=== PATIENT | male | born 1980 | race Caucasian/White ===

== ENCOUNTER 2020-04-27 11:32 | Emergency (ER) | payer SELFPAY ==
--- NOTE | ~2020-04-27 | CT_ITS ---
EXAMINATION: CT facial bones w con DATE: 04/27/2020 12:37 INDICATION: Right cheek and lip swelling. TECHNIQUE: Computed tomography (CT) of the facial bones and maxillofacial region was performed with 7 5 mL Omnipaque 350 intravenous contrast. Automated exposure control and iterative reconstruction tech [employer] were employed. The dose-length product was 364.38 mGy-cm. COMPARISON: None. FINDINGS: There is an old blowout fracture of medial wall of right orbit. There is mild mucosal thick ening in the paranasal sinuses. There are carious lesions of teeth 4, 5, 11, 14, 20, 21, 22, 27, 28, 29, 30, 31, and 32. There are periapical lucencies around teeth 31 and 32. In the upper lip and cheek centered to the right of midline and extending to the right nasal cavity, there is soft tissue swell ing with a central hypoattenuated area measuring 2.3 x 1.0 x 1.4 cm, consistent with abscess. IMPRESSION: 1. Abscess centered in the right upper lip and cheek to the right of midline. 2. Extensive dental disease. Reviewed, dictated and finalized at location A. [employer]
[2020-04-27 11:40] VITALS: BP 151/96; PULSE 94; RESP 16; TEMP 36.7; O2SAT 99
[2020-04-27 12:01] LABS: Basophils Absolute Auto 0.03 K/mm3 (0.00-0.10); Basophils Percent Auto 0.2 % (0.0-1.0); Eosinophils Absolute Auto 0.04 K/mm3 (0.02-0.50); Eosinophils Percent Auto 0.3 % (1.0-6.0); Hematocrit 44.9 % (40.0-54.0); Hemoglobin 15.5 g/dL (14.0-18.0); Immature Granulocyte Absolute 0.08 K/mm3 (0.00-0.00); Immature Granulocyte Percent A 0.6 % (0.0-0.0); Lymphocytes Absolute Auto 2.09 K/mm3 (1.10-4.50); Lymphocytes Percent Auto 15.2 % (18.0-42.0); Mean Corpuscular HGB Conc 34.5 g/dL (32.0-36.0); Mean Corpuscular Hemoglobin 32.6 pg (27.0-31.0); Mean Corpuscular Volume 94.5 fL (78.0-102.0); Mean Platelet Volume 8.7 fl (8.7-11.0); Monocytes Absolute Auto 0.86 K/mm3 (0.10-0.90); Monocytes Percent Auto 6.2 % (2.0-11.0); Neutrophils Absolute Auto 10.7 K/mm3 (1.7-7.2); Neutrophils Percent Auto 77.5 % (50.0-70.0); Platelet Count Result 367 K/mm3 (150-420); Red Blood Count 4.75 M/mm3 (4.70-6.10); Red Cell Distribution Width 11.3 % (11.6-14.4); White Blood Count 13.8 K/mm3 (4.8-10.8)
--- NOTE | 2020-04-27 12:18 | ED.DENTAL ---
HPI - Dental/Oral General Chief complaint: Dental/Oral Stated complaint: face pain/swollen Time Seen by Provider: 04/27/20 11:50 Source: patient Mode of arrival: ambulatory Limitations: no limitations History of Present Illness HPI Narrative: 39-year-old man comes in today complaining of pain and swelling in his right upper lip and cheek that started approximately 1 week ago. Patient states that he had a pimple in his nose and after he discovered that his symptoms have only gotten worse. He states that he a had a temperature up to 100.4 F 2-3 days ago. He complains of nausea but he has had no vomiting, difficulty swallowing and difficulty breathing or toothache. He states he has headache. Severity: severe Relieving factors: nothing Exacerbating factors: other (palpation, movement) Associated symptoms: fever Treatment prior to arrival: other (azithromycin - first dose taken) Related Data Home Medications Medication Instructions Recorded Confirmed azithromycin 250 mg PO DIRECTED 04/27/20 04/27/20 Allergies Allergy/AdvReac Type Severity Reaction Status Date / Time No Known Allergies Allergy Unverified 06/20/18 17:52 Review of Systems Constitutional: Constitutional: Denies chills, Reports fever(s) and Denies weakness Eyes: Eyes: Denies change in vision and Denies photophobia ENT: Denies dysphagia, Denies nasal congestion and Denies sore throat Comments: Complains of pain at the right upper neck next to his jaw. Cardiovascular: Cardiovascular: Denies chest pain and Denies radiating jaw, neck or arm pain Respiratory: Respiratory: Denies cough and Denies dyspnea Gastrointestinal: Gastrointestinal: Denies abdominal pain, Reports nausea and Denies vomiting Neurologic: Denies vertigo, Denies dizziness and Denies syncope Hematologic/Lymphatic: Hematologic/Lymphatic: Denies easy bleeding and Denies easy bruising Allergic/Immunologic: Allergic/Immunologic: Reports lip swelling, Denies throat swelling and Denies tongue swelling PMFSH Past Medical History Medical History Ankle fracture Back fracture Surgical History Surgical History History of appendectomy Social History Social History Smoking status: Current every day smoker Tobacco type: cigars Alcohol intake: former Substance use: never Exam Const: Other: Moderate acute distress HENMT: Ears: external ears normal, TM's normal bilaterally and EAC's normal Mouth: Yes moist mucous membranes Throat: posterior oropharynx normal Other: Tenderness and swelling around the right nasal ala, which is raised compared to the left. No erythema or swelling of the ala itself. Mild tenderness palpation of the roof of the mouth. Eyes: Conjunctivae: conjunctivae normal Pupils: Equal, round and reactive pupils present EOM: EOMs intact bilaterally Neck: Neck: normal visual inspection Other: Mild right anterior cervical adenopathy which is minimally tender. Resp: Effort & Inspection: normal respiratory effort and not labored Auscultation: clear to auscultation bilaterally, no rales, no rhonchi and no wheezes Cardio: Rate: regular rate Rhythm: regular rhythm Heart sounds: no murmurs Skin: General skin exam: normal color, no jaundice and no pallor Rashes: no rashes Neuro: General: patient oriented x3, moves all extremities, no focal motor deficits and CN's II-XI intact bilaterally Speech: normal speech Gait exam (Neuro): Normal gait present Extrem: General: normal to inspection and no clubbing, cyanosis or edema Psych: Appearance: grossly normal and well kempt Mental Status: mental status grossly normal Affect: normal affect Attitude: cooperative Thought content: Yes Normal thought content present Course Vital Signs Vital signs: Vital Signs Temperature 36.7 C 04/27/
[2020-04-27 12:19] LABS: Alanine Aminotransferase 52 U/L (16-63); Albumin Level 3.4 g/dL (3.4-5.0); Alkaline Phosphatase 129 U/L (46-116); Anion Gap 10 mmol/L (8-16); Aspartate Amino Transferase 20 U/L (15-37); Bilirubin,Total 0.4 mg/dL (0.00-1.00); Blood Urea Nitrogen 5 mg/dL (7-18); Calcium 9.1 mg/dL (8.5-10.1); Carbon Dioxide 29 mmol/L (21-32); Chloride 101 mmol/L (98-108); Estimated Glomerular Filt Rate > 60; Glucose 148 mg/dL (70-99); Osmolality Calculated 290 mOsm/kg (285-295); Potassium 3.9 mmol/L (3.5-5.1); Sodium 140 mmol/L (136-145)
[2020-04-27] MEDS: CLINDAMYCIN HCL 150 MG CAP 300 MG PO (13:11)
[2020-04-27] MEDS: HYDROcodone/acetaminophen (*CRX) 5-325 MG TABLET 1 TAB PO (13:11)
--- NOTE | 2020-04-27 14:13 | PC.NURSE ---
I&D PERFORMED PER ERP - NO RELIEF OF PUS OR PRESSURE - PT IS GIVEN INSTRUCTIONS ON USE OF SALT WATER GARGLES FOR MOUTH AND FOLLOW UP WITH ENT DR BOJORQUEZ
[2020-04-27 14:23] VITALS: RESP 15
== END 2020-04-27 14:25 | disposition home or self-care (01) ==
PROVIDERS: Emergency Provider Emergency Medicine; PCP Family Medicine
DX: L02.01 Cutaneous abscess of face (principal)
CPT/HCPCS: 36415; 41800; 70487; 80053; 85025; 87070; 87077; 87186; 87205; 99283; 99284; A9270; Q9967

== ENCOUNTER 2020-12-27 16:39 | Outpatient (CLI) | payer BC, SELFPAY ==
[2020-12-27 17:26] LABS: SARS-CoV-2 Ag Positive (Negative)
== END 2020-12-27 16:40 | disposition home or self-care (01) ==
LOC: CHSLAB 16:44
PROVIDERS: PCP Family Medicine; Visit Provider Physician Assistant
DX: U07.1 COVID-19 (principal)
CPT/HCPCS: 87426; C9803

== ENCOUNTER 2021-11-16 04:15 | Emergency (ER) | payer BC, SELFPAY ==
[2021-11-16] VITALS (15 sets, daily range): BP systolic 116–148; BP diastolic 80–94; PULSE 74–96; RESP 15–24; TEMP 36.4–37.1; O2SAT 98–100
--- NOTE | ~2021-11-16 | CT_ITS ---
EXAMINATION: CT abdomen pelvis w con DATE: 11/16/2021 06:11 INDICATION: Right abdominal pain. TECHNIQUE: Computed tomography (CT) of the abdomen and pelvis was performed with 100 mL Omnipaque 350 intravenous contrast. Automated exposure control and iterative reconstruction technique were employe d. The dose-length product was 445.41 mGy-cm. COMPARISON: CT abdomen and pelvis 06/20/2018 FINDINGS: The visualized portions of the lung bases demonstrate minimal atelectasis on the right. No pleural effusion. The heart size is normal. No pericardial effusion. The liver, gallbladder, spleen, pancreas, adrenal glands, and right kidney are normal. There are cysts in left kidney measuring up to 9 mm. The prostate is mildly enlarged. There are no dilated loops of bowel. There are changes of stephanie endectomy. There are no pathologically enlarged lymph nodes. There is no free intraperitoneal fluid. There is a left inguinal hernia containing fat. There is moderate thoracic spondylosis. There is aleena re lower lumbar spondylosis. IMPRESSION: 1. Small left inguinal hernia containing fat. Reviewed, dictated and finalized at location A.
--- NOTE | 2021-11-16 04:34 | ED.ABDPAIN ---
HPI - Abdominal Pain General Chief Complaint: Abdominal Pain <Colby Hinojosa MD - Last Filed: 11/30/21 14:03> Stated Complaint: ABD PAIN <Colby Hinojosa MD - Last Filed: 11/30/21 14:03> Time Seen by Provider: 11/16/21 04:35 <Colby Hinojosa MD - Last Filed: 11/30/21 14:03> Source: patient <Colby Hinojosa MD - Last Filed: 11/30/21 14:03> Mode of arrival: ambulatory <Colby Hinojosa MD - Last Filed: 11/30/21 14:03> History of Present Illness HPI narrative: 41-year-old male with a history of status post appendectomy, presents to the ER with a 1 day history of -- right upper quadrant abdominal pain which started at 2:00 p.m. yesterday. The pain has gotten progressively worse. No aggravating or relieving factors. Pain is intermittent. Pain is currently rated as 5/10. -- nausea with 2 episodes of vomiting this morning. No fever or chills. No dysuria/ hematuria or flank pain. He had a similar pain 1 year ago and subsequently has had intermittent flare-ups of pain with spontaneous resolution. He has never seen physician for his right quadrant abdominal pain. <Colby Hinojosa MD - Last Filed: 11/30/21 14:03> MD elicited complaint: abdominal pain <Colby Hinojosa MD - Last Filed: 11/30/21 14:03> Pertinent past history: none ( Prior history of right upper quadrant abdominal pain.) <Colby Hinojosa MD - Last Filed: 11/30/21 14:03> Onset (ago): hour(s) ( Started 14 hours ago) <Colby Hinojosa MD - Last Filed: 11/30/21 14:03> Pain Consistency: intermittent <Colby Hinojosa MD - Last Filed: 11/30/21 14:03> Location: RUQ <Colby Hinojosa MD - Last Filed: 11/30/21 14:03> Severity: moderate <Colby Hinojosa MD - Last Filed: 11/30/21 14:03> Pain scale (0-10): 5 <Colby Hinojosa MD - Last Filed: 11/30/21 14:03> Quality: aching <Colby Hinojosa MD - Last Filed: 11/30/21 14:03> Radiation: none <Colby Hinojosa MD - Last Filed: 11/30/21 14:03> Migration to: no migration <Colby Hinojosa MD - Last Filed: 11/30/21 14:03> Exacerbating factors: nothing <Colby Hinjoosa MD - Last Filed: 11/30/21 14:03> Relieving factors: nothing <Colby Hinojosa MD - Last Filed: 11/30/21 14:03> Associated symptoms: denies other symptoms <Colby Hinojosa MD - Last Filed: 11/30/21 14:03> Related Data Home Medications: Home Medications Medication Instructions Recorded Confirmed No Home Medications 11/16/21 11/16/21 <Colby Hinojosa MD - Last Filed: 11/30/21 14:03> Allergies/Adverse Reactions: Allergies Allergy/AdvReac Type Severity Reaction Status Date / Time No Known Allergies Allergy Verified 11/16/21 04:20 <Colby Hinojosa MD - Last Filed: 11/30/21 14:03> Review of Systems Review of Systems: All systems reviewed & are unremarkable except as noted in HPI and below <Colby Hinojosa MD - Last Filed: 11/30/21 14:03> Constitutional: Constitutional: Reports as per HPI and Reports no additional constitutional complaints <Colby Hinojosa MD - Last Filed: 11/30/21 14:03> Eyes: Eyes: Reports as per HPI and Reports no additional eye complaints <Colby Hinojosa MD - Last Filed: 11/30/21 14:03> ENT: Reports system reviewed and no additional complaints, except as documented and Reports as per HPI <Colby Hinojosa MD - Last Filed: 11/30/21 14:03> Cardiovascular: Cardiovascular: Reports as per HPI and Reports no additional cardiovascular complaints <Colby Hinojosa MD - Last Filed: 11/30/21 14:03> Respiratory: Respiratory: Reports as per HPI and Reports no additional respiratory complaints <Colby Hinojosa MD - Last Filed: 11/30/21 14:03> Gastrointestinal: Gastrointestinal: Reports as per HPI, Reports no additional gastrointestinal complaints, Reports abdominal pain, Reports nausea and Reports vomiting <Colby Hinojosa MD - Last
[2021-11-16 05:02] LABS: Basophils Absolute Auto 0.05 K/mm3 (0.00-0.10); Basophils Percent Auto 0.5 % (0.0-1.0); Eosinophils Absolute Auto 0.04 K/mm3 (0.02-0.50); Eosinophils Percent Auto 0.4 % (1.0-6.0); Hematocrit 43.6 % (40.0-54.0); Hemoglobin 15.1 g/dL (14.0-18.0); Immature Granulocyte Absolute 0.05 K/mm3 (0.00-0.00); Immature Granulocyte Percent A 0.5 % (0.0-0.0); Lymphocytes Absolute Auto 1.42 K/mm3 (1.10-4.50); Lymphocytes Percent Auto 12.9 % (18.0-42.0); Mean Corpuscular HGB Conc 34.6 g/dL (32.0-36.0); Mean Corpuscular Hemoglobin 33.3 pg (27.0-31.0); Mean Corpuscular Volume 96.2 fL (78.0-102.0); Monocytes Absolute Auto 0.91 K/mm3 (0.10-0.90); Monocytes Percent Auto 8.2 % (2.0-11.0); Neutrophils Absolute Auto 8.6 K/mm3 (1.7-7.2); Neutrophils Percent Auto 77.5 % (50.0-70.0); Platelet Count Result 293 K/mm3 (150-420); Red Blood Count 4.53 M/mm3 (4.70-6.10); Red Cell Distribution Width 12.2 % (11.6-14.4); White Blood Count 11.1 K/mm3 (4.8-10.8)
[2021-11-16 05:23] LABS: Lactic Acid Reflex 0.6 mmol/L (0.4-2.0)
[2021-11-16 05:28] LABS: Alanine Aminotransferase 488 U/L (16-63); Alkaline Phosphatase 220 U/L (46-116); Anion Gap 9 mmol/L (8-16); Aspartate Amino Transferase 270 U/L (15-37); Bilirubin,Total 4.8 mg/dL (0.00-1.00); Blood Urea Nitrogen 14 mg/dL (7-18); Calcium 9.1 mg/dL (8.5-10.1); Carbon Dioxide 23 mmol/L (21-32); Chloride 103 mmol/L (98-108); Estimated CRCL calculation 81 ml/min; Estimated Glomerular Filt Rate > 60; Glucose 138 mg/dL (70-99); Osmolality Calculated 282 mOsm/kg (285-295); Potassium 3.7 mmol/L (3.5-5.1); Sodium 135 mmol/L (136-145); Total Protein 7.3 g/dL (6.4-8.2)
[2021-11-16 05:32] LABS: Lipase > 1500 U/L (73-393)
[2021-11-16] MEDS: LACTATED RINGERS 1,000 ML 999 ML IV CONT (06:13)
[2021-11-16] MEDS: PANTOPRAZOLE SODIUM IV 40 MG VIAL IV PUSH (06:40)
[2021-11-16] MEDS: LACTATED RINGERS 1,000 ML 150 ML IV CONT (07:17)
[2021-11-16 08:05] LABS: Appearance Urine Clear (Clear); Bilirubin Urine 1+ (Negative); Blood Urine Negative (Negative); Glucose Urine UA Negative (Negative); Ketones Urine Trace (Negative); Leukocyte Esterase Ur Negative (Negative); Nitrate Urine Negative (Negative); Protein Urine Negative (Negative); pH Urine 7.5 (5.0-8.0)
[2021-11-16 08:18] LABS: Add Urine Microscopic? YES; Amorphous Sediment Urine Moderate; Bacteria Urine Trace /hpf; Color Urine Dark Orange (Yellow); RBC Urine None seen /hpf (0-2); WBC Urine None seen /hpf (0-3)
--- NOTE | 2021-11-16 08:40 | PC.NURSE ---
0715 resumed care of pt. no complaints voiced. awaiting ct results 0740 call to [facility] awaiting call back [id number] call to [facility], awaiting bed placement
== END 2021-11-16 09:35 | disposition short-term general hospital (02) ==
PROVIDERS: Internal Medicine Critical Care Medicine; Emergency Provider Emergency Medicine; PCP Family Medicine
DX: K85.90 Acute pancreatitis without necrosis or infection, unspecified (principal); F17.200 Nicotine dependence, unspecified, uncomplicated
CPT/HCPCS: 36415; 74177; 80053; 81001; 83605; 83690; 84484; 85025; 96361; 96374; 99285; C9113; J7120; Q9967

== ENCOUNTER 2022-11-10 10:40 | Emergency (ER) | payer BC, SELFPAY ==
--- NOTE | 2022-11-10 10:46 | ED.ABDPAIN ---
HPI - Abdominal Pain General Chief Complaint: Abdominal Pain Stated Complaint: right upper quadrant pain Time Seen by Provider: 11/10/22 10:45 History of Present Illness HPI narrative: Patient is a 42-year-old male with prior history of pancreatitis, status post cholecystectomy here with right upper quadrant and epigastric abdominal pain. He states he has had intermittent abdominal pains Which are sharp, severe for the last 1 week. He notes that it has been intermittent in nature and seems to have been relieved with Ochelata which he had been taking for dental pain. He notes that he ran out of Ochelata over the weekend and he has been in significant pain since. He has been unable to tolerate anything p.o. other than a couple of crackers this morning. He has had numerous episodes of emesis typically containing stomach acid or whatever he just ate. No blood. he does note some associated diarrhea. He notes some blood on the toilet paper after wiping. He states the pain feels Similar to when he had cholecystitis in the past. He notes that his girlfriend believed his eyes were getting more yellow over the last 1 week. His last alcoholic drink was about 1 year ago. Of note he is currently on Augmentin for dental infection which he began prior to symptom onset. No urinary symptoms, no flank pain, no hematuria. No fever or chills, has been diaphoretic. Related Data Allergies Allergy/AdvReac Type Severity Reaction Status Date / Time No Known Allergies Allergy Verified 11/10/22 10:51 Review of Systems Review of Systems: All systems reviewed & are unremarkable except as noted in HPI and below PMFSH Past Medical History Medical History Ankle fracture Back fracture Surgical History Surgical History History of appendectomy Social History Social History Smoking status: Current every day smoker Tobacco type: cigars Alcohol intake: former Substance use: never Living arrangements: with family Exam Narrative: GENERAL: Well-appearing, well-nourished, appears to be in pain, diaphoretic, dry heaving HEAD: Normocephalic, atraumatic. EYES: PERRLA and EOMI. ENT: Nares clear. Mucous membranes moist. NECK: Supple. CHEST: Clear to auscultation. No respiratory distress. HEART: Tachycardic. Normal peripheral pulses. ABDOMEN: Soft, diffusely tender with distractible voluntary guarding, no rebound. EXTREMITIES: Normal range of motion. No edema. SKIN: Warm, dry, no rash. NEURO: No focal deficits. Alert and oriented x3. PSYCH: Normal mood and affect. Course Course Emergency Course: Chart review performed. Patient has history of pancreatitis. s/p cholecystectomy and appendectomy. Patient seen evaluated, does appear to be uncomfortable, writhing in pain and dry heaving. Vitals reviewed and appear stable. Based on the patient's history and physical exam, my differential includes but is not limited to gastritis, gastroenteritis, pancreatitis, less likely bowel obstruction given active diarrhea. Initial workup includes: lab work, pain medication, IVF, reevaluation. Lab work and imaging reviewed: No leukocytosis, hgb stable. Electrolytes within normal limits. Renal function at baseline. Bilirubin normal. AST/ALT/Alk phos mildly elevated however improved from 2021. Troponin negative. Lipase normal. ETOH negative. Patient reevaluated, feeling much better. Repeat abdominal exam is soft with no guarding. Minimally tender in the epigastric region. Discussed protonix, carafate, zofran for home. Will do PO challenge. On reevaluation, the patient states that they are feeling much better. Tolerating PO. Repeat examination did not show any significant guarding or rebound. Discussed workup with patient. The patient was given strict return precautions, if they ar
--- NOTE | 2022-11-10 10:47 | ECG_ITS ---
Measurements Intervals [facility] Rate: 75 P: 59 OR: 136 QRS: 77 QRSD: 105 T: 64 QT: 394 QTc: 443 Interpretive Statements SINUS RHYTHM NORMAL ECG COMPARED TO ECG 02/20/2019 23:48:55 NO SIGNIFICANT CHANGES Electronically Signed On 11-12-2022 12:13:25 CDT by Vinicius Fritz M.D.
[2022-11-10 10:50] VITALS: BP 129/88; PULSE 84; RESP 24; TEMP 36.2; O2SAT 100
[2022-11-10 10:52] VITALS: BP 129/88; PULSE 84; RESP 17; TEMP 36.2; O2SAT 100
[2022-11-10] MEDS: PANTOPRAZOLE SODIUM IV 40 MG VIAL IV PUSH (11:12)
[2022-11-10] MEDS: SODIUM CHLORIDE 0.9% IV 1,000 ML 999 ML IV CONT (11:12)
[2022-11-10 11:13] LABS: Basophils Absolute Auto 0.04 K/mm3 (0.00-0.10); Basophils Percent Auto 0.4 % (0.0-1.0); Eosinophils Absolute Auto 0.09 K/mm3 (0.02-0.50); Eosinophils Percent Auto 0.9 % (1.0-6.0); Hematocrit 43.4 % (40.0-54.0); Hemoglobin 14.8 g/dL (14.0-18.0); Immature Granulocyte Absolute 0.05 K/mm3 (0.00-0.00); Immature Granulocyte Percent A 0.5 % (0.0-0.0); Lymphocytes Absolute Auto 2.58 K/mm3 (1.10-4.50); Lymphocytes Percent Auto 25.9 % (18.0-42.0); Mean Corpuscular HGB Conc 34.1 g/dL (32.0-36.0); Mean Corpuscular Hemoglobin 32.8 pg (27.0-31.0); Mean Corpuscular Volume 96.2 fL (78.0-102.0); Mean Platelet Volume 8.8 fl (8.7-11.0); Neutrophils Absolute Auto 6.6 K/mm3 (1.7-7.2); Neutrophils Percent Auto 66.3 % (50.0-70.0); Platelet Count Result 364 K/mm3 (150-420); Red Blood Count 4.51 M/mm3 (4.70-6.10); Red Cell Distribution Width 12.1 % (11.6-14.4)
[2022-11-10] MEDS: ONDANSETRON INJ 4 MG/2 ML VIAL IV PUSH (11:14)
[2022-11-10] MEDS: MORPHINE SULFATE (*CRX) 4 MG/ML INJ IV PUSH (11:16)
[2022-11-10 11:32] LABS: Alanine Aminotransferase 92 U/L (16-63); Albumin Level 3.6 g/dL (3.4-5.0); Alkaline Phosphatase 158 U/L (46-116); Anion Gap 10 mmol/L (8-16); Aspartate Amino Transferase 107 U/L (15-37); Bilirubin,Total 0.5 mg/dL (0.00-1.00); Blood Urea Nitrogen 11 mg/dL (7-18); Calcium 8.8 mg/dL (8.5-10.1); Carbon Dioxide 28 mmol/L (21-32); Chloride 102 mmol/L (98-108); Estimated CRCL calculation 73 ml/min; Estimated Glomerular Filt Rate > 60; Glucose 111 mg/dL (70-99); Lipase 47 U/L (16-77); Osmolality Calculated 290 mOsm/kg (285-295); Sodium 140 mmol/L (136-145); Total Protein 7.7 g/dL (6.4-8.2)
[2022-11-10 11:34] LABS: Bilirubin Direct 0.2 mg/dL (0-0.2)
[2022-11-10 11:35] LABS: Bilirubin Indirect 0.3 mg/dL (0-1.0)
[2022-11-10 11:36] LABS: Ethanol < 3 mg/dL (0-6); Troponin I < 4.0 ng/L (0.00-60.4)
[2022-11-10 12:53] VITALS: BP 134/94; PULSE 71; RESP 17; TEMP 36.7; O2SAT 100
== END 2022-11-10 12:53 | disposition home or self-care (01) ==
PROVIDERS: Emergency Provider Student in an Organized Health Care Education/Training Program; PCP Family Medicine
DX: R74.01 Elevation of levels of liver transaminase levels (principal); R11.2 Nausea with vomiting, unspecified; F17.290 Nicotine dependence, other tobacco product, uncomplicated; Z90.49 Acquired absence of other specified parts of digestive tract
CPT/HCPCS: 36415; 80053; 80307; 82248; 83690; 84484; 85025; 93005; 96361; 96374; 96375; 99284; C9113; J2270; J2405; J7030

== ENCOUNTER 2022-11-10 15:28 | Emergency (ER) | payer BC, SELFPAY ==
--- NOTE | ~2022-11-10 | CT_ITS ---
EXAMINATION: CT abdomen pelvis wo con DATE: 11/10/2022 16:26 INDICATION: Right upper quadrant pain TECHNIQUE: Computed tomography (CT) of the abdomen and pelvis was performed without intravenous contr ast. The dose-length product (DLP) was 312.91 mGy-cm. Automated exposure control and iterative recons truction technique were employed. COMPARISON: 11/16/2021 FINDINGS: Minimal dependent atelectasis is present in the lung bases. The heart size is normal. The l iver, spleen, pancreas, gallbladder and adrenal glands are normal. There is mild enlargement of the c ommon bile duct of unclear etiology. In addition, there is questionable peritoneal inflammation or th ickening near the hepatic flexure near the colon best appreciated on coronal reconstructed image 28 o f 140. The kidneys are unremarkable. No pathologically enlarged abdominal or pelvic lymph nodes are i dentified. No free intraperitoneal gas or evidence of bowel obstruction. Changes of appendectomy are noted. There is mild lumbar spondylosis. IMPRESSION: 1. Mild enlargement of the common bile duct of unclear etiology. Follow-up with contrast-enhanced CT is recommended. 2. Questionable peritoneal inflammation or thickening near the hepatic flexure of the colon which cou ld also be simultaneously evaluated with contrast-enhanced CT. Reviewed, dictated and finalized at location B. IMPRESSION: 1. Mild enlargement of the common bile duct of unclear etiology. Follow-up with contrast-enhanced CT is recommended. 2. Questionable peritoneal inflammation or thickening near the hepatic flexure of the colon which could also be simultaneously evaluated with contrast-enhance d CT.
--- NOTE | ~2022-11-10 | CT_ITS ---
EXAMINATION: CT abdomen pelvis w con DATE: 11/10/2022 17:27 INDICATION: dilated cbd, colonic inflammation, RUQ abdominal pain TECHNIQUE: Computed tomography (CT) of the abdomen and pelvis was performed with 100 mL Omnipaque-350 intravenous contrast. Automated exposure control and iterative reconstruction technique were employe d. The dose-length product was 407.03 mGy-cm. COMPARISON: None. FINDINGS: Lower thorax: Unremarkable Liver: Normal. Biliary/Gallbladder: No dilation. Surrounding inflammatory change and mucosal hyperemia, particularly at the gallbladder neck. Intrahepatic hepatic bile duct dilation, no stone or mass detected. Pancreas: No mass or duct dilation. Spleen: Normal. Adrenals:No mass. Kidneys: Simple left renal cysts No mass, stone, or hydronephrosis. GI tract: Mild distal esophageal and gastric wall edema. Mild pericolonic inflammatory change of the hepatic flexure without wall thickening. No small or large bowel dilation. Surgically absent appendix . Mesentery/Peritoneum: No ascites, mass, or free air. Retroperitoneum: No mass. Pelvis: Pelvic organs are within normal limits. Soft Tissues: Soft tissues and body wall unremarkable. Bones: No acute osseous finding. IMPRESSION: Mild esophagitis/gastritis. Intra and extrahepatic bile duct dilation with accompanying hyperemia and inflammatory change. No obs tructing stone or mass detected. Right upper quadrant ultrasound, HIDA scanning, or MRCP may be helpf ul for further evaluation. Mild pericolonic inflammation at the hepatic flexure is presumed to be reactive to the bile duct proc ess. Reviewed, dictated and finalized at location K. IMPRESSION: Mild esophagitis/gastritis. Intra and extrahepatic bile duct dilation with accompanying hyperemia and infla mmatory change. No obstructing stone or mass detected. Right upper quadrant ult rasound, HIDA scanning, or MRCP may be helpful for further evaluation. Mild pericolonic inflammation at the hepatic flexure is presumed to be reactive to the bile duct process.
--- NOTE | 2022-11-10 15:32 | ED.ABDPAIN ---
HPI - Abdominal Pain General Chief Complaint: Abdominal Pain Stated Complaint: stomach pain Time Seen by Provider: 11/10/22 15:31 History of Present Illness HPI narrative: Patient is a 42-year-old male with history of pancreatitis, CBD stone status post cholecystectomy here with abdominal pain. Patient was seen by me earlier today for abdominal pain. He had a negative workup here in the department and was feeling great after a dose of morphine. He left after tolerating p.o. and went to his primary care doctor's office for a preexisting appointment due to a skin tag on his leg. There he was in significant abdominal pain and they recommended he return to the emergency department. I did speak with patient's primary care doctor who notes that patient appeared to be in pain and he was unsure further workup was required in the emergency department. Given lack of resources in the outpatient study and the significant pain patient appeared to be and he referred him back to the emergency department. Patient notes that he attempted to fill his prescriptions but they were not ready at the pharmacy. He denies any additional vomiting. Denies any change in the pain. Notes pain continues to be located in the epigastrium and is non radiating. He has not had any additional bowel movements. No fever or chills. Related Data Allergies Allergy/AdvReac Type Severity Reaction Status Date / Time No Known Allergies Allergy Verified 11/10/22 15:31 Review of Systems Review of Systems: CONSTITUTIONAL: Denies fever, chills, or sweats. CARDIOVASCULAR: Denies chest pain RESPIRATORY: Denies cough or dyspnea. GASTROINTESTINAL: abdominal pain, nausea, vomiting, and diarrhea. GENITOURINARY: Denies dysuria or hematuria. SKIN: Denies rash or itching. MUSCULOSKELETAL: Denies back pain, joint pain, or myalgia. [facility] Past Medical History Medical History (Updated 11/10/22 @ 18:42 by Joi Chadwick MD) Abdominal pain, acute, right upper quadrant Ankle fracture Back fracture Surgical History Surgical History History of appendectomy Social History Social History Smoking status: Current every day smoker Tobacco type: cigars Alcohol intake: former Substance use: never Living arrangements: with family Exam Narrative: GENERAL: Well-appearing, well-nourished, not diaphoretic, moaning in pain when I enter the room HEAD: Normocephalic, atraumatic. EYES: PERRLA and EOMI. ENT: Nares clear. Mucous membranes moist. NECK: Supple. CHEST: Clear to auscultation. No respiratory distress. HEART: Regular rate and rhythm. Normal peripheral pulses. ABDOMEN: Soft, tender in the epigastrium, no rebound or guarding EXTREMITIES: Normal range of motion. No edema. SKIN: Warm, dry, no rash. NEURO: No focal deficits. Alert and oriented x3. PSYCH: Normal mood and affect. Course Course Emergency Course: Patient seen evaluated. It does appear to be in pain at this time, not diaphoretic like last presentation. Chart review not necessary given I saw the same patient couple of hours ago for the same. I did discuss case with patient's primary care doctor. He has been unable to refill his prescriptions. Given lab work within the last few hours, will not repeat at this time. UA ordered. Pain medication ordered with toradol, carafate and zofran. Will do CT abdomen pelvis. I believe CBD stone highly unlikely given he is S/P cholecystectomy 6 months ago. Continue to suspect gastritis, gastroenteritis, peptic ulcer disease, possibly bowel obstruction given prior abdominal surgeries. CT shows non specific CBD dilation and some peritoneal inflammation, radiologist recommends CT with contrast. Will order this. CT abdomen pelvis with contrast shows Intra and extrahepatic bile duct dilation with accompanying hyperemia and inflammatory changes, no stone or mas
[2022-11-10 15:40] VITALS: BP 164/117; PULSE 62; RESP 24; TEMP 36.7; O2SAT 100
[2022-11-10] MEDS: ONDANSETRON HCL ODT 4 MG TABLET PO (16:02)
[2022-11-10] MEDS: KETOROLAC 30 MG/ML VIAL (*BKC) 15 MG IM (16:03)
[2022-11-10] MEDS: SUCRALFATE SUSP 100 MG/ML 10 ML UDC 1000 MG PO (16:24)
[2022-11-10 19:40] VITALS: BP 135/96; PULSE 84; RESP 18; O2SAT 100
--- NOTE | 2022-11-10 19:40 | PC.NURSE ---
PT IS REQUESTING PAIN MEDICATION PRIOR TO DC DUE TO THE PHARMACY BEING CLOSED TONIGHT. PT REPORTS 5/10 ON PAIN SCALE AT THIS TIME TO RUQ. THAT KNOT IS THERE.
[2022-11-10] MEDS: HYDROcodone/acetaminophen (*CRX) 5-325 MG TABLET 1 TAB PO (19:48)
== END 2022-11-10 19:54 | disposition home or self-care (01) ==
PROVIDERS: Emergency Provider Student in an Organized Health Care Education/Training Program; PCP Family Medicine
DX: R10.11 Right upper quadrant pain (principal); F17.290 Nicotine dependence, other tobacco product, uncomplicated
CPT/HCPCS: 36415; 74176; 74177; 74178; 80053; 80307; 82248; 83690; 84484; 85025; 93005; 96361; 96372; 96374; 96375; 99284; A9270; C9113; J1885; J2270; J2405; J7030; Q9967

== ENCOUNTER 2022-11-11 09:48 | Emergency (ER) | payer BC, SELFPAY ==
--- NOTE | ~2022-11-11 | US_ITS ---
EXAMINATION: US right upper quadrant DATE: 11/11/2022 10:35 INDICATION: Right upper quadrant abdominal pain. TECHNIQUE: Multiple grayscale and Doppler ultrasound images of the abdomen were obtained. COMPARISON: CT abdomen and pelvis 11/10/2022 FINDINGS: The pancreas is obscured by bowel gas. The liver is normal without focal lesion. The gallbl adder is small and contains sludge. Gallbladder wall thickening is noted. There is a positive sonogra phic Cid sign. The common duct is dilated to 13 mm. There is normal flow in main portal vein. IMPRESSION: 1. Small gallbladder with sludge, gallbladder wall thickening, and positive sonographic Cid sign. These findings are indeterminate for acute cholecystitis. Consider hepatobiliary scintigraphy. 2. Dilated common duct. Reviewed, dictated and finalized at location A. IMPRESSION: 1. Small gallbladder with sludge, gallbladder wall thickening, and positive son ographic Cid sign. These findings are indeterminate for acute cholecystitis. Consider hepatobiliary scintigraphy. 2. Dilated common duct.
[2022-11-11 09:48] VITALS: BP 144/98; PULSE 75; PULSE 77; RESP 16; RESP 18; TEMP 36.4; O2SAT 100
--- NOTE | 2022-11-11 10:03 | ED.ABDPAIN ---
HPI - Abdominal Pain General Chief Complaint: Abdominal Pain Stated Complaint: abdominal pain Time Seen by Provider: 11/11/22 10:02 Source: patient and RN notes reviewed Mode of arrival: ambulatory Limitations: no limitations History of Present Illness HPI narrative: Patient was seen here twice in the last 24 hours for abdominal pain. It is recommended he have an outpatient ultrasound this morning which was at a.m.. He slept through it and now not able to get the ultrasound as scheduled. So he is coming through the ER again to get his ultrasound completed. MD elicited complaint: abdominal pain Pertinent past history: other ( Pancreatitis) Onset (ago): day(s) (2) Pain Consistency: intermittent Location: epigastric Severity: moderate Quality: cramping, stabbing and sharp Radiation: none Migration to: no migration Exacerbating factors: nothing Relieving factors: nothing Associated symptoms: nausea and vomiting Related Data Allergies Allergy/AdvReac Type Severity Reaction Status Date / Time No Known Allergies Allergy Verified 11/11/22 10:02 Review of Systems Review of Systems: All systems reviewed & are unremarkable except as noted in HPI and below Constitutional: Constitutional: Denies chills and Denies fever(s) PMFSH Past Medical History Medical History (Updated 11/11/22 @ 12:08 by Ahmet Rivas MD) Abdominal pain, acute, right upper quadrant Ankle fracture Back fracture Pancreatitis Surgical History Surgical History (Updated 11/11/22 @ 10:16 by Ahmet iRvas MD) History of appendectomy Hx of cholecystectomy Social History Social History Smoking status: Current every day smoker Tobacco type: cigars Alcohol intake: former Substance use: never Living arrangements: with family Exam Const: General: no acute distress, alert and ill appearing acutely Nutritional Appearance: well nourished Orientation/consciousness: patient oriented x3 Limitations: no limitations HENMT: Head: normal to inspection Ears: external ears normal Face/Nose/Sinus: Normal external nose present Face and sinus: normal facial exam Mouth: Yes moist mucous membranes Eyes: Conjunctivae: conjunctivae normal Pupils: Equal, round and reactive pupils present EOM: EOMs intact bilaterally Neck: Neck: normal visual inspection Resp: Effort & Inspection: normal respiratory effort Auscultation: clear to auscultation bilaterally Cardio: Rate: regular rate Rhythm: regular rhythm GI: GI Palp: Yes Soft to palpation, Yes Tenderness to palpation present (GI) ( epigastric moderate) and Yes Guarding due to palpation present (GI) ( epigastric moderate) Auscultation: normal bowel sounds Back/Spine/Pelvis: Back: no CVA tenderness Cervical Spine: cervical ROM normal Thoracic/Lumbar Spine: thoraco-lumbar ROM normal Skin: General skin exam: normal color Rashes: no rashes Neuro: General: patient oriented x3, moves all extremities, no focal motor deficits and CN's II-XI intact bilaterally Speech: normal speech Gait exam (Neuro): Normal gait present Extrem: General: normal to inspection and no clubbing, cyanosis or edema Psych: Mental Status: mental status grossly normal Affect: normal affect Attitude: cooperative Course Vital Signs Vital signs: Vital Signs Temperature 36.4 C 11/11/22 09:48 Pulse Rate 77 11/11/22 09:48 Respiratory Rate 18 11/11/22 09:48 Blood Pressure 144/98 H 11/11/22 09:48 Pulse Oximetry 100 11/11/22 09:48 Oxygen Delivery Room Air 11/11/22 09:48 Temperature 36.7 C 11/11/22 13:29 Pulse Rate 84 11/11/22 13:29 Respiratory Rate 18 11/11/22 13:29 Blood Pressure 105/64 11/11/22 13:29 Pulse Oximetry 100 11/11/22 13:29 Oxygen Delivery Room Air 11/11/22 13:29 Transfer Transfered to: Other ([facility]) Transportation: [facility] Accepting physician: Dr. Kong MDM - Abdominal Pain Differential Diagnosis Diff
[2022-11-11 10:23] LABS: Basophils Absolute Auto 0.04 K/mm3 (0.00-0.10); Basophils Percent Auto 0.5 % (0.0-1.0); Eosinophils Absolute Auto 0.04 K/mm3 (0.02-0.50); Eosinophils Percent Auto 0.5 % (1.0-6.0); Hematocrit 45.6 % (40.0-54.0); Hemoglobin 15.2 g/dL (14.0-18.0); Immature Granulocyte Absolute 0.03 K/mm3 (0.00-0.00); Immature Granulocyte Percent A 0.4 % (0.0-0.0); Lymphocytes Absolute Auto 0.93 K/mm3 (1.10-4.50); Lymphocytes Percent Auto 11.3 % (18.0-42.0); Mean Corpuscular HGB Conc 33.3 g/dL (32.0-36.0); Mean Corpuscular Hemoglobin 32.1 pg (27.0-31.0); Mean Corpuscular Volume 96.2 fL (78.0-102.0); Mean Platelet Volume 8.9 fl (8.7-11.0); Monocytes Absolute Auto 0.49 K/mm3 (0.10-0.90); Neutrophils Absolute Auto 6.7 K/mm3 (1.7-7.2); Neutrophils Percent Auto 81.3 % (50.0-70.0); Platelet Count Result 371 K/mm3 (150-420); Red Blood Count 4.74 M/mm3 (4.70-6.10); White Blood Count 8.2 K/mm3 (4.8-10.8)
[2022-11-11] MEDS: KETOROLAC 30 MG/ML VIAL (*BKC) IM (10:36)
[2022-11-11 10:38] LABS: Alanine Aminotransferase 585 U/L (16-63); Albumin Level 3.6 g/dL (3.4-5.0); Alkaline Phosphatase 300 U/L (46-116); Amylase 87 U/L (25-115); Anion Gap 8 mmol/L (8-16); Aspartate Amino Transferase 311 U/L (15-37); Bilirubin,Total 4.4 mg/dL (0.00-1.00); Blood Urea Nitrogen 7 mg/dL (7-18); Carbon Dioxide 27 mmol/L (21-32); Chloride 101 mmol/L (98-108); Estimated Glomerular Filt Rate > 60; Glucose 126 mg/dL (70-99); Lipase 160 U/L (16-77); Osmolality Calculated 282 mOsm/kg (285-295); Potassium 4.4 mmol/L (3.5-5.1); Sodium 136 mmol/L (136-145); Total Protein 7.8 g/dL (6.4-8.2)
--- NOTE | 2022-11-11 10:49 | PC.NURSE ---
PT IS ROLLING AROUND ON STRETCHER MOANING AND CRYING. WARM BLANKET PROVIDED. MEDICATION ADMINISTERED, BED ADJUSTED. FAMILY AT BEDSIDE. PT IS AWAITING RESULTS AT THIS TIME. WILL CONTINUE TO MONITOR.
[2022-11-11 10:50] VITALS: BP 138/94; PULSE 72; RESP 18; O2SAT 100
--- NOTE | 2022-11-11 11:52 | PC.NURSE ---
PT IS SLEEPING ON STRETCHER IN EXAM ROOM, FAMILY HAS LEFT. PT AND FAMILY ARE AWARE OF PLAN OF CARE. PT IS AWAITING RETURN CALL FROM [facility] AT THIS TIME. WILL CONTINUE TO MONITOR.
[2022-11-11] MEDS: HYDROmorphone HCL INJ (*CRX) 2 MG/ML VIAL 1 MG IV PUSH (12:39)
[2022-11-11 12:40] VITALS: BP 117/68; PULSE 73; RESP 16; O2SAT 100
[2022-11-11 13:29] VITALS: BP 105/64; PULSE 84; RESP 18; TEMP 36.7; O2SAT 100
--- NOTE | 2022-11-11 13:30 | PC.NURSE ---
PT IS SLEEPING ON STRETCHER IN EXAM ROOM AWAITING EMS FOR TRANSPORT. PT TO BE TRANSFERRED TO ROOM 85B AT [facility]. WILL CONTINUE TO MONITOR. NAD NOTED. VSS PER MONITOR.
== END 2022-11-11 13:50 | disposition short-term general hospital (02) ==
PROVIDERS: Emergency Provider Emergency Medicine; PCP Family Medicine
DX: K81.0 Acute cholecystitis (principal); R74.01 Elevation of levels of liver transaminase levels; F17.290 Nicotine dependence, other tobacco product, uncomplicated
CPT/HCPCS: 36415; 76705; 80053; 82150; 83690; 85025; 96372; 96374; 99285; J1170; J1885